=== PATIENT | female | born 1940 | race Asian ===

== ENCOUNTER 2016-12-17 08:00 | Outpatient (RCR) | payer OTHER | END 2016-12-31 | disposition home or self-care (01) | LOC: PTY 08:00 | DX: M17.12 Unilateral primary osteoarthritis, left knee (principal) | CPT/HCPCS: 97110; 97161; G0283 ==

== ENCOUNTER 2016-12-21 12:30 | Outpatient (RCR) | payer OTHER | END 2016-12-31 | disposition home or self-care (01) | LOC: PTY 12:30 | DX: Z98.890 Other specified postprocedural states (principal) | CPT/HCPCS: 97110; 97161; G0283 ==

== ENCOUNTER 2017-01-03 11:00 | Outpatient (RCR) | payer OTHER | END 2017-01-31 | disposition home or self-care (01) | LOC: PTY 11:00 | DX: M17.12 Unilateral primary osteoarthritis, left knee (principal) | CPT/HCPCS: 97110; 97535; G0283 ==

== ENCOUNTER 2017-01-06 08:30 | Outpatient (RCR) | payer OTHER | END 2017-01-31 | disposition home or self-care (01) | LOC: PTY 08:30 | DX: M54.5 Low back pain (principal); Z98.890 Other specified postprocedural states | CPT/HCPCS: 97110; G0283 ==

== ENCOUNTER 2017-03-02 09:00 | Outpatient (RCR) | payer OTHER | END 2017-03-03 | disposition home or self-care (01) | LOC: PTY 09:00 | DX: M17.12 Unilateral primary osteoarthritis, left knee (principal); M50.30 Other cervical disc degeneration, unspecified cervical region | CPT/HCPCS: 97110; G0283 ==

== ENCOUNTER 2017-03-02 09:00 | Outpatient (RCR) | payer OTHER | END 2017-03-03 | disposition home or self-care (01) | LOC: PTY 09:00 | DX: Z98.890 Other specified postprocedural states (principal) | CPT/HCPCS: 97110; 97140; G0283 ==

== ENCOUNTER 2017-03-22 11:18 | Outpatient (RCR) | payer OTHER | END 2017-04-02 | disposition home or self-care (01) | LOC: MERGE 11:18 → PTY 11:18 | DX: M17.12 Unilateral primary osteoarthritis, left knee (principal) ==

== ENCOUNTER 2017-03-29 08:15 | Outpatient (RCR) | payer OTHER | END 2017-04-02 | disposition home or self-care (01) | LOC: PTY 08:15 | DX: Z98.890 Other specified postprocedural states (principal); M17.12 Unilateral primary osteoarthritis, left knee | CPT/HCPCS: 97110; 97140; G0283 ==

== ENCOUNTER 2017-03-29 08:44 | Outpatient (RCR) | payer OTHER | END 2017-04-02 | disposition home or self-care (01) | LOC: PTY 08:44 | DX: M48.06 Spinal stenosis, lumbar region (principal); M54.16 Radiculopathy, lumbar region; M50.30 Other cervical disc degeneration, unspecified cervical region | CPT/HCPCS: 97110; G0283 ==

== ENCOUNTER 2017-04-20 10:15 | Outpatient (RCR) | payer OTHER | END 2017-05-03 | disposition home or self-care (01) | LOC: PTY 10:15 | DX: M17.12 Unilateral primary osteoarthritis, left knee (principal) | CPT/HCPCS: 97110; G0283 ==

== ENCOUNTER 2017-06-30 09:00 | Outpatient (RCR) | payer OTHER | END 2017-07-03 | disposition home or self-care (01) | LOC: PTY 09:00 | DX: M54.16 Radiculopathy, lumbar region (principal); M48.061 Spinal stenosis, lumbar region without neurogenic claudication; M50.30 Other cervical disc degeneration, unspecified cervical region ==